=== PATIENT | female | born 1960 | race Caucasian/White ===

== ENCOUNTER → 2016-04-16 | Outpatient (CLI) | payer MEDICAID ==
--- NOTE | 2016-04-16 13:47 | DX ---
PA and Lateral Chest April 16, 2016 Indication: Shortness of breath. Findings: The lungs are well-aerated and clear except for minimal diffuse peribronchial thickening an d minimal linear atelectasis at the left base. No airspace consolidation, edema, effusion, or pneumot horax. Heart size is normal. Minimal degenerative disk disease is present in the midthoracic spine. Impression: 1. Minimal bronchitis and minimal left basilar atelectasis. 2. No pneumonia or effusion. Comment: A voicemail was left for Halley Mi shortly after study completion.
== END ==
LOC: FIMAGING 12:43
PROVIDERS: ATTEND Physician Assistant
DX: J40 Bronchitis, not specified as acute or chronic (principal)

== ENCOUNTER → 2016-04-29 | Outpatient (CLI) | payer MEDICAID ==
--- NOTE | 2016-04-29 12:13 | US ---
Ultrasound Pelvis Complete (Transabdominal and Endovaginal) History: Intermittent pelvic pain in a 55-year-old female. Technique: Transabdominal and endovaginal ultrasound images were obtained. Endovaginal images obtain ed for better evaluation of the uterine myometrium and adnexa. Color Doppler evaluation is employed f or assessment of vascularity. Comparison to the prior study October 20, 2010. Findings: The uterus is normal in size and measures 5.4 x 2.0 x 3.2 cm. The uterus appears arcuate. . The endometrial measures 3-4 cm in thickness. No masses are seen. The ovaries are normal in size. The right ovary measures 2.4 x 1.1 x 2.5 cm and the left ovary measur es 1.6 x 1.6 x 2.2 cm. Color Doppler demonstrates flow to each ovary. Punctate echogenic foci in the ovaries bilaterally probably represent minimal calcifications. Previously noted hydrosalpinx has reso lved. No adnexal masses. No free fluid is identified in the pelvis. Impression: 1. Essentially negative pelvic ultrasound with no source for intermittent pelvic pain identified. The re is been interval resolution of previously noted hydrosalpinx. 2. See above report for additional findings.
--- NOTE | 2016-04-29 13:11 | DX ---
Right Ankle Series, 3 Views History: Pain following trauma. Findings: There is a mildly displaced and minimally comminuted fracture of the lateral malleolus. Sof t tissue swelling is seen laterally. The ankle mortise is not widened. No other fracture is identifie d. A plantar calcaneal spur is seen. Impression: Mildly displaced lateral malleolar fracture.
== END ==
LOC: BMCIMAGING 10:44
PROVIDERS: ATTEND Physician Assistant
DX: S82.61XA Displaced fracture of lateral malleolus of right fibula, initial encounter for closed fracture (principal); R10.2 Pelvic and perineal pain

== ENCOUNTER → 2016-05-29 | Outpatient (CLI) | payer MEDICAID | LOC: BMCIMAGING 14:00 | PROVIDERS: ATTEND Podiatrist Foot & Ankle Surgery | DX: S82.831D Other fracture of upper and lower end of right fibula, subsequent encounter for closed fracture with routine healing (principal) ==

== ENCOUNTER → 2016-06-19 | Outpatient (CLI) | payer MEDICAID | LOC: BMCIMAGING 13:57 | PROVIDERS: ATTEND Podiatrist Foot & Ankle Surgery | DX: S82.401D Unspecified fracture of shaft of right fibula, subsequent encounter for closed fracture with routine healing (principal) ==

== ENCOUNTER → 2016-12-30 | Outpatient (CLI) | payer MEDICAID | LOC: BMCIMAGING 14:53 | PROVIDERS: ATTEND Physician Assistant | DX: Z12.31 Encounter for screening mammogram for malignant neoplasm of breast (principal); M43.16 Spondylolisthesis, lumbar region; M41.86 Other forms of scoliosis, lumbar region; M51.36 Other intervertebral disc degeneration, lumbar region | CPT/HCPCS: G0202 ==

== ENCOUNTER → 2017-02-06 | Outpatient (CLI) | payer MEDICAID | LOC: FIMAGING 11:37 | PROVIDERS: ATTEND Physician Assistant | DX: M41.86 Other forms of scoliosis, lumbar region (principal); M51.26 Other intervertebral disc displacement, lumbar region ==

== ENCOUNTER → 2017-02-19 | Outpatient (CLI) | payer MEDICAID | LOC: BMCIMAGING 11:19 | PROVIDERS: ATTEND Podiatrist Foot & Ankle Surgery | DX: M79.671 Pain in right foot (principal); M85.471 Solitary bone cyst, right ankle and foot ==

== ENCOUNTER 2017-03-10 11:23 | Day surgery (SDC) | payer MEDICAID ==
[2017-03-10] MEDS ORDERED: LR 1,000 ML IV ONE (12:26)
[2017-03-10] MEDS ORDERED: LIDOCAINE 1% 2 ML INJ ID PRN (12:26)
--- NOTE | 2017-03-10 13:00 | PDANEPAE ---
ANE History of Present Illness screening colonscopy ANE Past Medical History - Cardiovascular History Hx Hypertension: Yes Hx Arrhythmias: No Hx Chest Pain: No Hx Coronary Artery / Peripheral Vascular Disease: No Hx CHF / Valvular Disease: No Hx Palpitations: No - Pulmonary History Hx COPD: No Hx Asthma/Reactive Airway Disease: No Hx Recent Upper Respiratory Infection: No Hx Oxygen in Use at Home: No Hx Sleep Apnea: No Sleep Apnea Screening Result - Last Documented: Positive - Neurologic History Hx Cerebrovascular Accident: No Hx Seizures: No Hx Dementia: No - Endocrine History Hx Diabetes: No - Renal History Hx Renal Disorders: No - Liver History Hx Hepatic Disorders: No - Neurological & Psychiatric Hx Hx Neurological and Psychiatric Disorders: No - Cancer History Hx Cancer: No - Congenital Disorder History Hx Congenital Disorders: No - GI History Hx Gastrointestinal Disorders: No - Other Health History Other Health History: NONE - Chronic Pain History Chronic Pain: Yes (LOWER BACK) - Surgical History Prior Surgeries: NONE ANE Review of Systems Review of Systems: - Exercise capacity METS (RN): 5 METS ANE Patient History - Allergies Allergies/Adverse Reactions: acetaminophen [From Vicodin] Allergy (Mild, Verified 10/20/10 13:50) itch hydrocodone bitartrate [From Vicodin] Allergy (Mild, Verified 10/20/10 13:50) itch - Home Medications Home medications: home medication list seen and reviewed Home Medications: Miscellaneous Medical Supply [NO HOME MEDS] 06/07/12 [Last Taken Unknown] Lisinopril/Hydrochlorothiazide 03/10/17 [Last Taken Unknown] - NPO status NPO Since - Liquids (Date): 03/09/17 NPO Since - Liquids (Time): 07:30 NPO Since - Solids (Date): 03/09/17 NPO Since - Solids (Time): 11:00 - Anes Hx Anes Hx: no prior problems - Smoking Hx Smoking Status: Never smoked - Alcohol Use Alcohol Use: Rarely - Family Anes Hx Family Hx Anesthesia Complications: NONE ANE Labs/Vital Signs - Vital Signs Blood Pressure: 155/94 Heart Rate: 66 Respiratory Rate: 16 O2 Sat (%): 95 Height: 162.56 cm Weight: 56.699 kg ANE Physical Exam - Airway Mallampati Score: Class 1 Mouth exam: normal dental/mouth exam - Pulmonary Pulmonary: no respiratory distress - Cardiovascular Cardiovascular: regular rate and rhythym - ASA Status ASA Status: II ANE Anesthesia Plan Anesthesia Plan: GA with mask
[2017-03-10] MEDS ORDERED: fentaNYL 100 MCG/2 ML INJ ONE (13:07)
[2017-03-10] MEDS ORDERED: PROPOFOL/EMULSION 500 MG/50 ML BOTTLE IV ONE (13:07)
[2017-03-10] MEDS ORDERED: DEXAMETHASONE 4 MG/ML VIAL ONE (13:13)
[2017-03-10] MEDS ORDERED: ONDANSETRON 4 MG/2 ML VIAL ONE (13:13)
--- NOTE | 2017-03-10 13:21 | POSTOPPROG ---
Post Op Note Date of Operation: 03/10/17 Surgeon: Uziel Argueta Anesthesia: IV Sedation Pre-op Diagnosis: screening Post-op Diagnosis: same Indication: CRC screening Procedure: CLN Findings: normal Inf/Abcess present in the surg proc area at time of surgery?: No
--- NOTE | 2017-03-10 13:24 | GIREPORT ---
Former[facility] - Endoscopy Department Patient Name: Karley Stone Procedure Date: 03/10/2017 12:58 PM Patient Type: Outpatient Attending / ER Physician: Uziel Argueta MD Procedure: Colonoscopy Indications: Screening for colorectal malignant neoplasm Providers: Uziel Argueta MD Medicines: General Anesthesia Complications: No immediate complications. Description of Procedure: After obtaining informed consent, the scope was passed under direct vis ion. Throughout the procedure, the patient's blood pressure, pulse, and oxyg en saturations were monitored continuously. The was introduced through the anus and advanced to the cecum, identified by appendiceal orifice and ileoce shady valve. The colonoscopy was performed with ease. The patient tolerated t he procedure well. The quality of the bowel preparation was excellent. Findings: The entire examined colon appeared normal on direct and retroflexion vi ews. Estimated Blood Loss: Estimated blood loss: none. Post Op Diagnosis: - The entire examined colon is normal on direct and retroflexion views. - No specimens collected. Recommendation: - Discharge patient to home. - Resume previous diet. - Continue present medications. - Repeat colonoscopy in 10 years for surveillance. Attending Participation: I personally performed the entire procedure. Uziel Argueta MD Uziel Argueta MD 03/10/2017 1:24:48 PM This report has been signed electronicallyRobsun Argueta MD Number of Addenda: 0 Note Initiated On: 03/10/2017 12:58 PM Total Procedure Duration Time 0 hours 5 minutes 29 seconds [email or web address]
[2017-03-10 13:28] VITALS: PULSE 68
[2017-03-10] MEDS ORDERED: PHENYLEPHRINE HCL 100 MCG/ML SYR IVP PRN (13:28)
[2017-03-10] MEDS ORDERED: LR 500 ML IV PRN (13:28)
[2017-03-10] MEDS ORDERED: ACETAMINOPHEN 500 MG TAB PO PRN (13:28)
[2017-03-10] MEDS ORDERED: PROMETHAZINE HCL 25 MG/ML INJ IVP PRN (13:28)
[2017-03-10] MEDS ORDERED: NALOXONE HCL 0.4 MG/ML INJ IVP PRN (13:28)
[2017-03-10] MEDS ORDERED: ALBUTEROL 3 ML DEYVIAL IH PRN (13:28)
[2017-03-10] MEDS ORDERED: fentaNYL 100 MCG/2 ML INJ IVP PRN (13:28)
--- NOTE | 2017-03-10 13:29 | POSTANESTH ---
Post Anesthetic Evaluation Cardiovascular Status: Normal, Stable Respiratory Status: Normal, Stable Level of Consciousness/Mental Status: Can Participate in Eval Pain Control: Adequate, Prn Tx Ordered Nausea/Vomiting Control: Adequate, Prn Tx Ordered Complications Possibly Related to Anesthesia: None Noted
[2017-03-10 14:15] VITALS: RESP 15
[2017-03-10 14:21] VITALS: TEMP 96.8
[2017-03-10 14:22] VITALS: BP 120/72; O2SAT 97
== END 2017-03-10 14:35 | disposition home or self-care (01) ==
LOC: FSGY 11:23
PROVIDERS: ATTEND Internal Medicine Gastroenterology
PROC: 0DJD8ZZ Inspection of Lower Intestinal Tract, Via Natural or Artificial Opening Endoscopic (ICD-10-PCS; principal; 2017-03-10 13:00)
DX: Z12.11 Encounter for screening for malignant neoplasm of colon (principal); M54.5 Low back pain; G89.29 Other chronic pain; I70.0 Atherosclerosis of aorta; E78.2 Mixed hyperlipidemia
CPT/HCPCS: J1100; J2405; J2704; J3010

== ENCOUNTER 2017-04-21 12:50 | Emergency (ER) | payer MEDICAID ==
[2017-04-21 13:00] VITALS: RESP 18; O2SAT 97
--- NOTE | 2017-04-21 14:15 | EDPHY ---
H & P Time Seen by Provider: 04/21/17 13:21 HPI/ROS: Chief complaint. Head injury HPI. 56-year-old female with head injury a week ago. She says she hit her head on a car door and lost consciousness for undetermined amount of time. She does not remember how she got home. Since then she has had bruising to her face , headaches, memory lapses, emotional lability. She has short-term memory loss. Denies neck pain chest pain back pain or injury to arms legs. ROS Constitutional. no fever/chills, no weakness Eyes. no problems with vision ENT. no sore throat, no nasal drainage; bruising to face Cardiovascular. no chest pain Respiratory. no shortness of breath, no cough Abdominal. no abdominal pain, no nausea/vomiting, no diarrhea . no problems urinating MS. no calf pain/swelling, no neck/back pain, no joint pain Skin. no rash Lymph. no swollen glands Neuro. headache, no dizziness, no difficulty walking or with speech; emotional lability short-term memory loss Past Medical/Surgical History: Hypertension dyslipidemia Social History: , nonsmoker, no alcohol Smoking Status: Former smoker Physical Exam: General Appearance: Alert well-developed female mild distress vital signs are stable and significant for initial blood pressure 170/111 Eyes: Pupils equal and round no pallor or injection. ENT, no hemotympanum or Ocampo sign. No injury to mouth or teeth. Bilateral periorbital ecchymosis Respiratory: There are no retractions, lungs are clear to auscultation. Cardiovascular: Regular rate and rhythm. Gastrointestinal: Abdomen is soft and nontender, no masses, bowel sounds normal. Neurological: Awake and alert, sensory and motor exams grossly normal. Skin: Warm and dry, no rashes. Musculoskeletal: Neck is supple nontender. Extremities symmetrical, full range of motion. Psychiatric: Patient is oriented X 3, there is no agitation. Constitutional: Initial Vital Signs Temperature (C) 37 C 04/21/17 12:53 Heart Rate 87 04/21/17 12:53 Respiratory Rate 18 04/21/17 12:53 Blood Pressure 170/111 H 04/21/17 12:53 O2 Sat (%) 97 04/21/17 12:53 O2 Delivery Mode Room Air Allergies/Adverse Reactions: hydrocodone bitartrate [From Vicodin] Allergy (Mild, Verified 10/20/10 13:50) itch Home Medications: Medication Instructions Recorded Lisinopril/Hydrochlorothiazide 03/10/17 Atorvastatin Calcium 04/21/17 Medical Decision Making - Diagnostics Imaging Results: Imaging Impressions Head CT 04/21/17 14:25 Impression: No intracranial posttraumatic sequela identified. Results called and discussed with LATONIA RIVERA M.D. on 04/21/2017 at 15:[address] reviewed by me and discussed with Dr. Mims shows no fracture or intracranial bleeding ED Course/Re-evaluation: Re-evaluation 3:15 p.m.. Patient is stable she and I discussed imaging study results, treatment plan including criteria for return importance of follow-up further evaluation. She expresses understanding and agreement Differential Diagnosis: I think this is likely post concussion syndrome. 1 week later she has post concussive type syndromes but significant facial bruising. I considered skull fracture and intracranial bleeding as well Departure - Departure Disposition: Home, Routine, Self-Care Clinical Impression: Post concussive syndrome Condition: Good Instructions: Post Concussion Syndrome (ED) Additional Instructions: Tylenol or ibuprofen as needed for head injury. Return for worsening symptoms. Follow up with Dr. Motley for continuing symptoms Referrals: Halley Mi PA [Primary Care Provider] - As per Instructions Leta Motley MD [Medical Doctor] - As per Instructions
[2017-04-21 15:17] VITALS: BP 144/104; PULSE 65; TEMP 99.1
== END 2017-04-21 15:27 | disposition home or self-care (01) ==
DX: G44.309 Post-traumatic headache, unspecified, not intractable (principal); F07.81 Postconcussional syndrome; I10 Essential (primary) hypertension; Z87.891 Personal history of nicotine dependence; W22.8XXA Striking against or struck by other objects, initial encounter